=== PATIENT | male | born 1950 | race Caucasian/White ===

== ENCOUNTER 2024-11-13 08:59 | Emergency (ER) | payer MEDICARE, OTHER ==
[2024-11-13] MEDS ORDERED: methylPREDNISolone Acetate 80 MG/ML SDV IM ONE (10:21)
[2024-11-13] MEDS: Ketorolac 30 MG/ML SDV IM ONE (11:08)
[2024-11-13] MEDS: methylPREDNISolone Sodium Succinate 125 MG/2 ML SDV IM ONE (11:09)
== END 2024-11-13 13:13 | disposition home or self-care (01) ==
LOC: JP.ED 08:59
DX: M62.830 Muscle spasm of back (principal); M79.661 Pain in right lower leg; Z79.82 Long term (current) use of aspirin; Z79.899 Other long term (current) drug therapy
CPT/HCPCS: 96372; 99283; A9270; J1885; J2919